=== PATIENT | female | born 1960 | race Caucasian/White ===

== ENCOUNTER 2020-01-09 05:49 | Day surgery (SDC) | payer BC ==
[2020-01-08 10:42] VITALS: BMI 36.7
[2020-01-09] MEDS ORDERED: Bupivacaine PF 0.5% 30 ML VIAL ONE (06:46)
[2020-01-09] MEDS ORDERED: Bacitracin Zinc Ointment 30 gm TUBE ONE (06:46)
[2020-01-09 06:51] LABS: #Basophils 0.1 thou/uL (0.0-0.2); #Eosinphils 0.2 thou/uL (0.0-0.7); #Lymphocytes 1.9 thou/uL (1.20-3.40); #Monocytes 0.4 thou/uL (0.11-0.59); #Neutrophils 3.7 thou/uL (1.40-6.50); %Basophils 0.8 % (0.0-1.0); %Eosinophils 3.7 % (0.0-10.0); %Lymphocytes 29.6 % (21.0-51.0); %Monocytes 6.6 % (0.0-10.0); %Neutrophils 59.2 % (42.0-75.0); Hemoglobin 13.2 g/dL (12.0-16.0); Mean Corpuscular HGB CONC 33.5 g/dL (32.0-36.0); Mean Corpuscular Hemoglobin 29.8 pg (27.0-31.0); Mean Corpuscular Volume 88.8 fL (78.0-98.0); Mean Platelet Volume 7.6 fL (7.4-10.4); Platelet Count 209 thou/uL (130-400); RBC Distribution Width 12.4 % (11.5-14.5); Red Blood Cell (RBC) Count 4.44 mill/uL (4.20-5.40); White Blood Cell (WBC) Count 6.2 thou/uL (4.8-10.8)
[2020-01-09] MEDS ORDERED: Midazolam HCl 2 mg/2 ml Vial ONE (07:09)
[2020-01-09] MEDS ORDERED: Fentanyl 100 MCG/2 ML VIAL ONE ×2 (07:18→08:40)
[2020-01-09 07:44] LABS: Bacteria/HPF None Seen HPF (None Seen); Bilirubin Negative (Negative); Blood, Urine Negative (Negative); Clarity Clear (Clear); Glucose, Urine (Dipstick) Normal (Negative); Leukocyte Negative Leu/uL (Negative); Nitrite Negative (Negative); Protein, Urine (Dipstick) 20 mg/dL (Neg-Trace); RBC/HPF 0-3 HPF (0-3); Squamous Epithelial 0-3 HPF (0-3); Urobilinogen Normal mg/dL (Less than 2)
[2020-01-09] MEDS ORDERED: Promethazine HCl 25 MG/ML VIAL SLOW IVP PRN (08:19)
[2020-01-09] MEDS ORDERED: Meperidine HCl/PF 25 MG/ML VIAL SLOW IVP PRN (08:19)
[2020-01-09] MEDS ORDERED: Promethazine HCl 25 MG/ML VIAL IM PRN (08:19)
[2020-01-09] MEDS ORDERED: Ondansetron HCl/PF 4 MG/2 ML Vial IVP PRN (08:19)
[2020-01-09] MEDS ORDERED: Ketorolac Tromethamine 30 MG/ML VIAL ONE (10:25)
[2020-01-09] MEDS ORDERED: PHENYLEPHRINE-NS 100 MCG/ML 10 ML SYRINGE ONE (11:52)
[2020-01-09] MEDS ORDERED: PROPOFOL 200 MG/20 ML VIAL ONE (11:52)
[2020-01-09] MEDS ORDERED: Dexamethasone 20 MG/5 ML VIAL ONE (11:52)
[2020-01-09] MEDS ORDERED: Lidocaine 1% PF 5 ML VIAL ONE (11:52)
[2020-01-09] MEDS ORDERED: EPHEDRINE 25 MG/5 ML SYRINGE ONE (11:52)
[2020-01-09] MEDS ORDERED: Ondansetron PF 4 MG/2 ML Vial ONE (11:52)
--- NOTE | 2020-01-09 12:15 | OP ---
DATE OF PROCEDURE: 01/09/2020 PREOPERATIVE DIAGNOSES: Right middle finger distal interphalangeal joint subluxation with retracted extensor mechanism and mallet finger type distal phalanx intra-articular fracture occupied approximately 40% articular surface. FINDINGS: Again 40% articular surface involvement of the fracture, but by now the fragment had become attenuated and it was at least a 40% to 50% extensor tendon avulsion. PROCEDURES PERFORMED: 1. Extensor right middle finger distal interphalangeal joint subluxation open reduction and pinning. 2. Right middle finger distal phalanx open reduction and internal fixation of fracture mallet type. 3. Right middle finger extensor tenolysis with extensor tendon repair back to bone, the terminal tendon. 4. C-arm supervision. SPECIMENS: None. ESTIMATED BLOOD LOSS: 10 mL. TOURNIQUET TIME: 65 minutes. INDICATIONS FOR PROCEDURE: The patient with almost 9-week-old injury axial load, initially did not notice a deformity except for swelling, but when started to see inability to extend the distal interphalangeal joint and mild hyperextension of the proximal interphalangeal joint, she came to clinic. Because of joint subluxation, widely displaced fracture already 9 weeks old, delaying surgery would be detrimental to fixation, so we scheduled surgery even during the interlude. DESCRIPTION OF PROCEDURE: After successful general endotracheal anesthesia, the limb was prepped and draped. We gave 50 mL of 0.5% Marcaine block and then exsanguinated the limb and inflated tourniquet to 250 mmHg pressure. Time-out confirmed the finger and the side as right middle finger. We made an H-type incision the fat layer, subcutaneous layer from the underlying tendon. We used C-arm to see where the bone edge was and 1 mm distal to this, we then incised the tendon. We could clearly see the tendon had pulled back and there was some pseudotendon formation, so we resected 1 mm pseudotendon on both sides of the elevation of the fragment, then we debrided with a combination of a curette and then used a K-wire to make small petaling holes in the distal end of the fracture. We used a combination of [place] blade and a curette on the proximal end, which was very small, almost just 3 mm thick. The fracture fragment also had a tendon with the point where in with it made up only about 70% of the articular surface remaining with and the rest was only extensor tendon to be placed back to the fracture line. For this reason, we tried to bring the tendon back and bone back to each other with the K-wire passed in excellent position in frontal sagittal plane to hold the joint in 5 degrees of hyperextension. But, at this point, it still did not reach, so we performed an extensor tenolysis to advance it, we weaved a 3-0 Prolene in a Ann-Marie style medially on both sides of the fracture in the tendon leaving the dorsal to the fracture and across into the articular line. We used a Jamison needle then to drill through the bone out to the palmar surface. We held it and reduced with the joint already pinned and tied over a button and Adaptic with excellent apposition, but there was some exaggerated tilt to the fragment, so we then corrected the tilt and placed two K-wires 0.035 obliquely, holding the bone in contact and in good rotation. There was no visible separation of the fragment at the articular surface. We cut the wires all, flushed with the skin for the 0.045 and the tendon surface for the 0.035. We then closed the dorsal part of the extensor mechanism with interrupted [id number] Prolene. Tourniquet was deflated. We obtained hemostasis. We then closed the incision with interrupted 4-0 nylon in simple pattern, placed in a small bulky dressing and a palmar metal finger splint out to the level of the midportion of P1, isolating and stabilizing the PIP and DIP joint from external flexion. She left the operating room without evidence of anesthetic or operative complication. Job ID: [id number]
--- NOTE | 2020-01-09 14:31 | RAD ---
THREE VIEWS OF THE RIGHT THIRD FINGER: 01/09/20 HISTORY: ORIF of third finger. FINDINGS/IMPRESSION: Multiple limited intraoperative fluoroscopic views of the right third finger were submitted for inter pretation. The patient is ongoing K-wire fixation of the DIP joint of the third finger. There appears to be a small mallet fracture. Other fracture fragments are difficult to see on the limited fluorosc opic views. POS: EAA
== END 2020-01-09 10:40 | disposition home or self-care (01) ==
LOC: SDC 05:49
PROVIDERS: ATTEND Orthopaedic Surgery Hand Surgery
PROC: 0LN70ZZ Release Right Hand Tendon, Open Approach (ICD-10-PCS; principal; 2020-01-09)
PROC: 0PST04Z Reposition Right Finger Phalanx with Internal Fixation Device, Open Approach (ICD-10-PCS; principal; 2020-01-09)
DX: S63.242A Subluxation of distal interphalangeal joint of right middle finger, initial encounter (principal); S62.632A Displaced fracture of distal phalanx of right middle finger, initial encounter for closed fracture; S66.392A Other injury of extensor muscle, fascia and tendon of right middle finger at wrist and hand level, initial encounter; I10 Essential (primary) hypertension; R73.03 Prediabetes; N39.3 Stress incontinence (female) (male); Z79.82 Long term (current) use of aspirin; Z79.84 Long term (current) use of oral hypoglycemic drugs; Z79.899 Other long term (current) drug therapy; Z88.2 Allergy status to sulfonamides; Z88.6 Allergy status to analgesic agent; X58.XXXA Exposure to other specified factors, initial encounter
CPT/HCPCS: 36415; 76000; 81001; 85025; 93005; 93010; J0690; J1885; J2250; J3010; J3370; Q4049; S0020

== ENCOUNTER 2020-04-20 06:55 | Day surgery (SDC) | payer BC ==
[2020-04-15 12:50] VITALS: BMI 35.4
[2020-04-20] MEDS ORDERED: Fentanyl 100 MCG/2 ML VIAL ONE (07:11)
[2020-04-20] MEDS ORDERED: Sodium Chloride 0.9% 10 ML ONE (08:34)
[2020-04-20] MEDS ORDERED: Bupivacaine PF 0.5% 30 ML VIAL ONE (08:34)
[2020-04-20] MEDS ORDERED: Bacitracin Zinc Ointment 30 gm TUBE ONE (08:34)
[2020-04-20] MEDS ORDERED: Ketorolac Tromethamine 30 MG/ML VIAL ONE (10:25)
--- NOTE | 2020-04-20 14:22 | RAD ---
EXAM: RIGHT FINGER TWO VIEWS: 04/20/20 HISTORY: Hardware removal right index finger. COMPARISON: 04/15/20. FINDINGS: The two previously noted Paul wires have been removed from the base of the distal phalanx of the index finger. IMPRESSION: Removal of two Paul wires. No evidence of retained foreign body. POS: RRE
[2020-04-20] MEDS ORDERED: PROPOFOL 200 MG/20 ML VIAL ONE (14:28)
[2020-04-20] MEDS ORDERED: Metoclopramide HCl 10 MG/2 ML VIAL ONE (14:28)
[2020-04-20] MEDS ORDERED: Lidocaine 1% PF 5 ML VIAL ONE (14:28)
[2020-04-20] MEDS ORDERED: Ondansetron PF 4 MG/2 ML Vial ONE (14:28)
--- NOTE | 2020-04-21 15:05 | OP ---
DATE OF PROCEDURE: 04/20/2020 PREOPERATIVE DIAGNOSIS: Painful right middle finger, deep K-wire for mallet finger. POSTOPERATIVE DIAGNOSIS: Painful right middle finger, deep K-wire for mallet finger. PROCEDURE PERFORMED: Removal under C-arm right middle finger wires. SPECIMEN REMOVED: Yes, two wires. ESTIMATED BLOOD LOSS: Less than 5 mL. FINDINGS: Stable fixation at approximately -5 degrees DIP joint extension. DESCRIPTION OF PROCEDURE: After successful general endotracheal anesthesia, the limb was prepped and draped. We then did time-out, appropriately identified the wires under C-arm to make the smallest incision. There were 2 wires from previous mallet finger fracture open reduction and internal fixation while the transverse wire across the joint had been removed earlier in the office. We then gave an injection of 10 mL of 0.5% Marcaine without epinephrine, exsanguinated the limb and using the C-arm made a small 1 to 2 mm incision longitudinally over the K-wires themselves and removed them with no complication or untoward outcomes. The patient had a finger tube gauze applied with a bacitracin adaptic mix to the incision area. The wounds were now closed. A small metal finger splint on the palmar side was applied to protect the tendon repair. Job ID: [id number]
== END 2020-04-20 11:15 | disposition home or self-care (01) ==
LOC: SDC 06:55
PROVIDERS: ATTEND Orthopaedic Surgery Hand Surgery
PROC: 0LPX0JZ Removal of Synthetic Substitute from Upper Tendon, Open Approach (ICD-10-PCS; principal; 2020-04-20)
DX: T84.84XA Pain due to internal orthopedic prosthetic devices, implants and grafts, initial encounter (principal); I10 Essential (primary) hypertension; E11.9 Type 2 diabetes mellitus without complications; E78.5 Hyperlipidemia, unspecified; Z79.82 Long term (current) use of aspirin; Z79.84 Long term (current) use of oral hypoglycemic drugs; Z79.899 Other long term (current) drug therapy; Z88.2 Allergy status to sulfonamides; Z88.6 Allergy status to analgesic agent
CPT/HCPCS: 76000; J0690; J1885; J2405; J2704; J2765; J3010; J3490; S0020

== ENCOUNTER 2020-05-05 10:10 | Outpatient (CLI) | payer BC ==
--- NOTE | 2020-05-05 10:25 | RAD ---
EXAM: 3 views of the right shoulder HISTORY: Shoulder pain COMPARISON: None FINDINGS: There is no evidence of acute fracture or dislocation. No degenerative changes are present. No soft tissue swelling is seen. The visualized thorax is unremarkable. IMPRESSION: No evidence of acute osseous abnormality.
== END 2020-05-05 10:11 | disposition home or self-care (01) ==
LOC: SCSRAD 10:10
PROVIDERS: ATTEND Family Medicine
DX: M25.511 Pain in right shoulder (principal)

== ENCOUNTER 2020-06-03 09:34 | Outpatient (CLI) | payer BC ==
--- NOTE | 2020-06-03 13:45 | MRI ---
EXAM: RIGHT SHOULDER MRI WITHOUT IV CONTRAST: 06/03/20 HISTORY: Acute right shoulder pain following an injury in October. Multiplanar, multisequence MRI examination of the right shoulder is performed. There is AC joint arth rosis with some subchondral cystic changes with fluid and fat stranding and subacromial subdeltoid bu rsa. There is an irregular full thickness tear of the supraspinatus tendon with some associated delam ination. No significant retraction. Infraspinatus tendon appears unremarkable. There is an undersurface and minimally delaminating tear o f the subscapularis tendon. Biceps tendon appears unremarkable. The posterior superior labrum is some what indistinct evidence for some degenerative fraying. Rotator cuff muscles within normal limits of signal and volume. No acute osteochondral defect. IMPRESSION: Evidence for an irregular full thickness nonretracted tear of the supraspinatus tendon at the inserti on. AC joint arthrosis. Fluid in the subacromial bursa. Somewhat thin and poorly defined blunted post erior superior labrum evidence for fraying. POS: RRE
== END 2020-06-03 09:35 | disposition home or self-care (01) ==
LOC: SCSMRI 09:34
PROVIDERS: ATTEND Orthopaedic Surgery
DX: M25.511 Pain in right shoulder (principal); M75.121 Complete rotator cuff tear or rupture of right shoulder, not specified as traumatic; M19.011 Primary osteoarthritis, right shoulder; M25.411 Effusion, right shoulder

== ENCOUNTER 2020-06-14 06:08 | Outpatient (CLI) | payer BC, OTHER ==
[2020-06-14 14:14] LABS: #Eosinphils 0.3 thou/uL (0.0-0.7); #Lymphocytes 2.2 thou/uL (1.20-3.40); #Monocytes 0.4 thou/uL (0.11-0.59); #Neutrophils 4.2 thou/uL (1.40-6.50); %Basophils 0.1 % (0.0-1.0); %Eosinophils 4.2 % (0.0-10.0); %Lymphocytes 30.7 % (21.0-51.0); %Monocytes 5.6 % (0.0-10.0); %Neutrophils 59.4 % (42.0-75.0); Mean Corpuscular HGB CONC 33.2 g/dL (32.0-36.0); Mean Corpuscular Hemoglobin 29.5 pg (27.0-31.0); Mean Corpuscular Volume 88.7 fL (78.0-98.0); Platelet Count 209 thou/uL (130-400); RBC Distribution Width 12.9 % (11.5-14.5); Red Blood Cell (RBC) Count 4.74 mill/uL (4.20-5.40)
--- NOTE | 2020-06-14 14:50 | EKG ---
Test Reason : Blood Pressure : / mmHG Vent. Rate : 071 BPM Atrial Rate : 071 BPM P-R Int : 214 ms QRS Dur : 100 ms QT Int : 440 ms P-R-T Axes : 062 040 073 degrees QTc Int : 478 ms Sinus rhythm with 1st degree A-V block Otherwise normal ECG No previous ECGs available Confirmed by BHAVANA ADAMS M.D. ([id number] on 06/14/2020 2:50:15 PM Referred By: KENDALLRO Confirmed By:BHAVANA ADAMS M.D.
[2020-06-14 19:29] LABS: Anion Gap 18 mmol/L (10-20); BUN (Urea Nitrogen) 8 mg/dL (9.8-20.1); Calc. Creatinine Clearance 0 mL/min (70-130); Calcium 9.5 mg/dL (7.8-10.44); Carbon Dioxide 21 mmol/L (22-29); Chloride 104 mmol/L (98-107); Estimated GFR-MDRD 55; Glucose 187 mg/dL (70-105); Potassium 3.5 mmol/L (3.5-5.1); Sodium 139 mmol/L (136-145)
[2020-06-15 13:00] LABS: SARS-CoV-2 MS2 Positive; SARS-CoV-2 N Gene Negative; SARS-CoV-2 S Gene Negative; SARS-CoV-2 by NAA Not Detected (NotDetected); SARS-CoV-2 orf1ab Negative
== END 2020-06-14 06:09 | disposition home or self-care (01) ==
LOC: LABBT 06:08
PROVIDERS: ATTEND Orthopaedic Surgery
DX: Z01.818 Encounter for other preprocedural examination (principal); Z20.828 Contact with and (suspected) exposure to other viral communicable diseases; M75.101 Unspecified rotator cuff tear or rupture of right shoulder, not specified as traumatic
CPT/HCPCS: 80048; 85025; 87635; 93005; 93010; U0003

== ENCOUNTER 2020-06-18 05:48 | Day surgery (SDC) | payer BC ==
[2020-06-15 13:44] VITALS: BMI 37.1
[2020-06-18] MEDS ORDERED: Lidocaine 1% (PF) 30 ML VIAL ONE (06:50)
[2020-06-18] MEDS ORDERED: Fentanyl 100 MCG/2 ML VIAL ONE (06:50)
[2020-06-18] MEDS ORDERED: Midazolam HCl 2 mg/2 ml Vial ONE (06:50)
[2020-06-18] MEDS ORDERED: Fentanyl 100 MCG/2 ML VIAL SLOW IVP PRN (07:23)
[2020-06-18] MEDS ORDERED: Ondansetron PF 4 MG/2 ML Vial IVP PRN (07:30)
[2020-06-18] MEDS ORDERED: Promethazine HCl 25 MG/ML VIAL IM PRN (07:30)
[2020-06-18] MEDS ORDERED: Ropivacaine 0.2% 550 ML 550 ML NERVE BLCK SCH (07:30)
[2020-06-18] MEDS ORDERED: traMADol HCl 50 MG TAB PO PRN ×2 (07:30)
[2020-06-18] MEDS ORDERED: Zolpidem Tartrate 5 MG TAB PO PRN (07:30)
[2020-06-18] MEDS ORDERED: Bupivacaine/Epinephrine 0.25% 30 ML VIAL ONE (08:08)
[2020-06-18] MEDS ORDERED: SUGAMMADEX SODIUM 200 MG/2 ML VIAL ONE (09:22)
[2020-06-18] MEDS ORDERED: Promethazine HCl 25 MG/ML VIAL ONE (10:26)
[2020-06-18] MEDS ORDERED: PROPOFOL 200 MG/20 ML VIAL ONE (11:44)
[2020-06-18] MEDS ORDERED: Rocuronium Bromide 10 MG/ML (10ML VIAL) ONE (11:44)
[2020-06-18] MEDS ORDERED: PHENYLEPHRINE-NS 100 MCG/ML 10 ML SYRINGE ONE (11:44)
[2020-06-18] MEDS ORDERED: Glycopyrrolate 0.2 MG/ML 5 ML SYRINGE ONE (11:44)
[2020-06-18] MEDS ORDERED: Ondansetron PF 4 MG/2 ML Vial ONE (11:44)
[2020-06-18] MEDS ORDERED: Lidocaine 1% PF 5 ML VIAL ONE (11:44)
[2020-06-18] MEDS ORDERED: Dexamethasone 20 MG/5 ML VIAL ONE (11:44)
[2020-06-18] MEDS ORDERED: EPHEDRINE 25 MG/5 ML SYRINGE ONE (11:44)
[2020-06-18] MEDS ORDERED: Ropivacaine 0.5% HCl/PF (150 MG/30 ML VIAL) ONE (11:44)
[2020-06-18] MEDS ORDERED: Ropivacaine 0.2% HCl/PF (40 MG/20 ML VIAL) ONE (11:44)
[2020-06-18] MEDS ORDERED: Ketorolac Tromethamine 30 MG/ML VIAL IVP SCH (12:00)
--- NOTE | 2020-06-20 15:20 | OP ---
DATE OF PROCEDURE: 06/18/2020 PREOPERATIVE DIAGNOSIS: Right shoulder impingement rotator cuff tear and biceps instability secondary to partial subscapularis tear. POSTOPERATIVE DIAGNOSIS: Right shoulder impingement rotator cuff tear and biceps instability secondary to partial subscapularis tear. PROCEDURES PERFORMED: 1. Closed manipulation, right shoulder. 2. Right shoulder arthroscopy with subacromial decompression. 3. Arthroscopic rotator cuff repair. 4. Open biceps tenodesis. PARTS CLASSIFIER: Levar Rubio PA-C ESTIMATED BLOOD LOSS: Approximately 30 mL. COMPLICATIONS: None. ANESTHESIA: The patient did have a general anesthetic as well as a preoperative block. IMPLANTS: We used one 4.75 BioComposite SwiveLock for cuff repair. We used 7 x 23 BioComposite Bio-Tenodesis screw for biceps tenodesis. DISPOSITION: She did go to recovery room in stable condition. INDICATIONS: This is a 60-year-old female, who had problems with pain, weakness and inability to use right arm despite nonoperative measures. At this time, opted to have surgery. DESCRIPTION OF PROCEDURE: After all appropriate consent forms were explained and signed, Stephanie was taken to the operating room and at this time was given general anesthetic. Once the level of anesthesia was appropriate, she was rolled into left lateral decubitus position with all bony prominences well padded. Axillary roll was placed underneath the left axilla and a beanbag was inflated to hold in this position. The right arm was then taken through full range of motion and was found to be somewhat stiff, but easily manipulated into full range of motion. We then suspended the arm with 10 pounds in standard arthroscopic fashion. The right shoulder and upper extremity were then prepped and draped in standard surgical fashion. Bony anatomical landmarks were drawn out, and the subacromial space was infiltrated with Marcaine with epinephrine. Posterior portal was established and the scope was placed into the shoulder joint. At this time, anterior working portal was made just inferior to the biceps tendon using the needle localization technique. Diagnostic arthroscopy commenced in the glenohumeral joint. The articular surface of the humeral head and glenoid were in excellent condition. No loose bodies were noted in the axillary pouch. The superior labrum was found to have a degenerative tear. The biceps tendon was found to be flat and irritated with significant amount of synovitis surrounding it and was found to be anterior to the normal position in the bicipital groove secondary to a leading edge tear of the subscapularis. The rotator cuff was found to be abnormal in the beginning portion of the supraspinatus tendon. At this time, the shaver was introduced to debride the torn portion of the subscapularis, getting down to good tendon, which required minimal debridement. The superior labrum was debrided at this time, as well as the undersurface of the cuff tear. At this time, an 18-gauge needle was used to place a stitch through the biceps tendon and the arthroscopic scissors were used to cut this off the superior labrum. We then repositioned the scope into the subacromial space. Lateral working portal was made and the bursa was removed from off the underlying rotator cuff. A small decompression was performed using the SERFAS energy as well as shaver. Once this was done, our small tear was noted. The leading edges were freshened up with a shaver and it was felt to be small enough only to do a SpeedFix. Therefore, a SutureTape was placed in an inverted mattress fashion using the Scorpion device and taken down and implanted into the bone using a 4.75 SwiveLock. This gave us excellent fixation of the small tear. The scope was then removed and the shoulder was drained. A 15 blade was used to make an incision down the side of the arm down through the skin. Bovie was used to coagulate any brisk venous bleeding. Deltoid fascia was opened sharply and finger dissection was used to split the deltoid tissue to the underlying transverse humeral ligament. This was opened up. The biceps tendon was pulled out of the wound. Any brisk venous bleeding was coagulated. We then sutured the tendon, removed the intra-articular portion of the tendon from the field and placed our guidewire. We reamed with a 7-mm reamer to a depth of 25. A 7 x 23 BioComposite Bio-Tenodesis screw was used to perform our biceps tenodesis. Sutures were tied over top, so the screw cannot back out. We then thoroughly irrigated and dried the wound. We then allowed our deltoid to close upon itself. Running Vicryl was used to close the deltoid fascia, followed by 2-0 Vicryl and sutures to close the skin. Bulky sterile dressing was applied and the patient was then awakened and taken to recovery room in stable condition. All counts were correct at the end of the case. She did receive preoperative IV antibiotics. The certified surgical assistant surgeon was present throughout the entire biceps tenodesis portion of the procedure, including the approach, the fixation and the closure. Job ID: [id number] MTDD
== END 2020-06-18 12:25 | disposition home or self-care (01) ==
LOC: SDC 05:48
PROVIDERS: ATTEND Orthopaedic Surgery
PROC: 3E0T3BZ Introduction of Anesthetic Agent into Peripheral Nerves and Plexi, Percutaneous Approach (ICD-10-PCS; principal; 2020-06-18)
PROC: 0LQ14ZZ Repair Right Shoulder Tendon, Percutaneous Endoscopic Approach (ICD-10-PCS; principal; 2020-06-18)
PROC: 0LS30ZZ Reposition Right Upper Arm Tendon, Open Approach (ICD-10-PCS; principal; 2020-06-18)
PROC: 0RNJ4ZZ Release Right Shoulder Joint, Percutaneous Endoscopic Approach (ICD-10-PCS; principal; 2020-06-18)
DX: M75.101 Unspecified rotator cuff tear or rupture of right shoulder, not specified as traumatic (principal); S43.491A Other sprain of right shoulder joint, initial encounter; M75.21 Bicipital tendinitis, right shoulder; M25.811 Other specified joint disorders, right shoulder; I12.9 Hypertensive chronic kidney disease with stage 1 through stage 4 chronic kidney disease, or unspecified chronic kidney disease; E11.22 Type 2 diabetes mellitus with diabetic chronic kidney disease; E11.40 Type 2 diabetes mellitus with diabetic neuropathy, unspecified; N18.3 Chronic kidney disease, stage 3 (moderate); E78.5 Hyperlipidemia, unspecified; Z79.82 Long term (current) use of aspirin; Z79.84 Long term (current) use of oral hypoglycemic drugs; Z79.899 Other long term (current) drug therapy; Z88.2 Allergy status to sulfonamides; Z88.6 Allergy status to analgesic agent; G89.18 Other acute postprocedural pain
CPT/HCPCS: 36416; A4306; C1713; J0690; J1100; J2001; J2250; J2405; J2550; J2704; J2795; J3010

== ENCOUNTER 2020-09-07 06:51 | Outpatient (CLI) | payer BC ==
[2020-09-07 17:45] LABS: Bilirubin Neg (Negative); Blood, Urine Negative (Negative); Clarity Slightly Cloudy (Clear); Glucose, Urine (Dipstick) >=1000 mg/dL (Negative); Ketone, Urine Negative (Negative); Leukocyte Negative (Negative); Nitrite Negative (Negative); Protein, Urine (Dipstick) Negative (Neg-Trace); Specific Gravity, Urine 1.015 (1.002-1.036); Urobilinogen Normal mg/dL (Less than 2)
[2020-09-07 17:53] LABS: Bacteria/HPF Rare-Few HPF (None Seen); RBC/HPF 0-3 HPF (0-3); Transitional Epithelial 0-3 HPF (None Seen); WBC/HPF 0-3 HPF (0-3)
[2020-09-08 02:57] LABS: SARS-CoV-2 MS2 Positive; SARS-CoV-2 N Gene Negative; SARS-CoV-2 S Gene Negative; SARS-CoV-2 by NAA Not Detected (NotDetected); SARS-CoV-2 orf1ab Negative
== END 2020-09-07 06:52 | disposition home or self-care (01) ==
LOC: LABBT 06:51
PROVIDERS: ATTEND Orthopaedic Surgery Hand Surgery
DX: Z01.812 Encounter for preprocedural laboratory examination (principal); M20.011 Mallet finger of right finger(s); Z20.828 Contact with and (suspected) exposure to other viral communicable diseases
CPT/HCPCS: 81001; 87635; U0003

== ENCOUNTER 2020-09-10 11:52 | Day surgery (SDC) | payer BC ==
[~2020-09-10 11:52] MED LIST: Dexamethasone 20 MG/5 ML VIAL ONE; Lidocaine 1% PF 5 ML VIAL ONE; Ondansetron PF 4 MG/2 ML Vial ONE; PHENYLEPHRINE-NS 100 MCG/ML 10 ML SYRINGE ONE; PROPOFOL 200 MG/20 ML VIAL ONE
[2020-09-10] MEDS ORDERED: Bupivacaine PF 0.5% 30 ML VIAL ONE (14:11)
[2020-09-10] MEDS ORDERED: Bacitracin Zinc Ointment 30 gm TUBE ONE (14:12)
[2020-09-10] MEDS ORDERED: Sodium Chloride 0.9% 10 ML ONE (14:12)
[2020-09-10] MEDS ORDERED: Fentanyl 100 MCG/2 ML VIAL ONE (14:15)
[2020-09-10] MEDS ORDERED: Midazolam HCl 2 mg/2 ml Vial ONE (14:15)
--- NOTE | 2020-09-10 16:29 | RAD ---
Exam: XR Finger(s) Rt Min 2 View HISTORY: Right middle finger arthrotomy and capsulotomy FINDINGS/IMPRESSION: 2 intraoperative fluoroscopic images of the right middle finger are submitted. The PA projection demo nstrates metallic instruments overlying the distal interphalangeal joint of the right middle finger. Correlation with intraoperative findings is recommended. Fluoroscopy: Time-27.3 seconds Dose-0.53 mGy
[2020-09-10] MEDS ORDERED: Ketorolac Tromethamine 30 MG/ML VIAL ONE (16:48)
--- NOTE | 2020-09-13 14:33 | OP ---
DATE OF PROCEDURE: 09/10/2020 PREOPERATIVE DIAGNOSES: 1. Contracted distal interphalangeal joint. 2. Contracture of intrinsics. POSTOPERATIVE DIAGNOSES: 1. Contracted distal interphalangeal joint. 2. Contracture of intrinsics. PROCEDURE PERFORMED: 1. Arthrotomy of distal interphalangeal joint with extensor tendon tenolysis. 2. Capsulotomy of interphalangeal joint. 3. Radial intrinsic release. 4. C-arm supervision. TOURNIQUET TIME: 40 minutes total. ESTIMATED BLOOD LOSS: Less than 10 mL. FINDINGS: Very tight dorsal capsule and extensor tendon. HISTORY: The patient had undergone open treatment of fracture, had the K-wires removed, but remained stiff over a 3-month period with no real change in motion, with minimal 5 degrees of palmar flexion. ANESTHESIA: General LMA technique augmented by total of 20 mL of 0.5% Marcaine block at metacarpophalangeal joint level, 10 given before incision and 10 given after. DESCRIPTION OF PROCEDURE: After anesthesia listed above, including the block, limb was prepped and draped. We performed a time-out. We then made a zigzag incision over the DIP joint and then carried proximally enough to reach the distal intrinsics. Here, we elevated the extensor mechanism at the distal interphalangeal joint and was able to achieve a bleeding surface between that and placing the bone. Then, we extended the incision of the proximal PIP joint dorsal until we could reach the intrinsics which underwent a release creating a triangle wedge in the intrinsic. The patient then had the tenolysis completed with tenotomy scissors and combination with a [place] blade. Incision was extended proximally until we could reach the most distal end of the intrinsics and underwent a triangle wedge shaped intrinsic release. The capsule also was released and a capsulotomy making motion procedure. Tourniquet was deflated after being released to 250 mmHg pressure and hemostasis excellent. The wounds were closed with interrupted 4-0 nylon interrupted mattress pattern. Job ID: [id number]
== END 2020-09-10 18:22 | disposition home or self-care (01) ==
LOC: SDC 11:52
PROVIDERS: ATTEND Orthopaedic Surgery Hand Surgery
PROC: 0RNW0ZZ Release Right Finger Phalangeal Joint, Open Approach (ICD-10-PCS; principal; 2020-09-10)
PROC: 0KNC0ZZ Release Right Hand Muscle, Open Approach (ICD-10-PCS; principal; 2020-09-10)
PROC: 0LN70ZZ Release Right Hand Tendon, Open Approach (ICD-10-PCS; principal; 2020-09-10)
DX: M24.541 Contracture, right hand (principal); M20.011 Mallet finger of right finger(s); M75.01 Adhesive capsulitis of right shoulder; I12.9 Hypertensive chronic kidney disease with stage 1 through stage 4 chronic kidney disease, or unspecified chronic kidney disease; E11.22 Type 2 diabetes mellitus with diabetic chronic kidney disease; N18.30 Chronic kidney disease, stage 3 unspecified; E78.5 Hyperlipidemia, unspecified; E11.40 Type 2 diabetes mellitus with diabetic neuropathy, unspecified; Z79.82 Long term (current) use of aspirin; Z79.84 Long term (current) use of oral hypoglycemic drugs; Z79.899 Other long term (current) drug therapy; Z88.2 Allergy status to sulfonamides; Z88.6 Allergy status to analgesic agent
CPT/HCPCS: 76000; J0690; J1100; J1885; J2250; J2405; J2704; J3010; J3490; S0020